=== PATIENT | male | born 1985 | race African-American/Black ===

== ENCOUNTER 2019-01-01 12:07 | Emergency (ER) | payer BC, MEDICAID ==
--- NOTE | 2019-01-01 13:12 | RAD ---
Right RIBS 2 views chest one view HISTORY: Bilateral rib pain following an injury and trauma No acute process in the chest. No pneumothorax or pleural effusion. No convincing evidence for an acu te right rib fracture. IMPRESSION: Unremarkable exam.
--- NOTE | 2019-01-01 13:13 | RAD ---
Exam: Left RIBS 2 views: HISTORY: Left rib pain following an injury from trauma Findings/impression: No pneumothorax or pleural effusion. No convincing evidence for acute rib fracture.
== END 2019-01-01 13:23 | disposition home or self-care (01) ==
LOC: MADERS 12:07
DX: S20.211A Contusion of right front wall of thorax, initial encounter (principal); S00.81XA Abrasion of other part of head, initial encounter; F17.210 Nicotine dependence, cigarettes, uncomplicated; X58.XXXA Exposure to other specified factors, initial encounter

== ENCOUNTER 2019-01-14 15:52 | Emergency (ER) | payer BC ==
--- NOTE | 2019-01-14 17:19 | RAD ---
RIGHT RIBS TWO VIEWS: 01/14/19 HISTORY: Rib pain x2 weeks. There is no signs of pneumothorax or evidence of rib fracture. IMPRESSION: Negative right ribs . POS: [facility]
[2019-01-14] MEDS ORDERED: Ketorolac Tromethamine 60 MG/2 ML VIAL ONE (17:42)
== END 2019-01-14 17:46 | disposition home or self-care (01) ==
LOC: MADERS 15:52
DX: S20.211A Contusion of right front wall of thorax, initial encounter (principal); F17.210 Nicotine dependence, cigarettes, uncomplicated; Y04.0XXA Assault by unarmed brawl or fight, initial encounter
CPT/HCPCS: 96372; J1885